=== PATIENT | female | born 1935 | race Caucasian/White ===

== ENCOUNTER 2017-10-10 18:56 | Emergency (ER) | payer MEDICARE, OTHER ==
[~2017-10-10] VITALS: Ht 175.3 cm; Wt 94.0 kg
[2017-10-10 19:05] VITALS: BP 177/89; PULSE 76; RESP 18; TEMP 98.8; O2SAT 97
--- NOTE | 2017-10-10 19:58 | PD ---
HPI Chief Complaint: Back/ Neck Pain or Injury Time Seen by Provider: 19:33 Travel History International Travel<30 days: No Contact w/Intl Traveler<30days: No Traveled to known affect area: No History of Present Illness HPI Patient 81-year-old female presents emergency department for evaluation of low back pain, flank pain, right-sided neck pain for the past day or 2. Patient about a week ago went to her primary care physician was diagnosed with urinary tract infection after presenting with flank pain. She was started on Keflex. Urine culture returned which show that the patient was resistant to Keflex and she was changed to Cipro by a PA. She was seen again today by the PA, still had urinary tract symptoms but had new complaints of neck pain and was thought that this might be an adverse reaction to Cipro so she was sent here for further evaluation. Patient states her neck pain is typically worse in the morning and then loosens up a little bit but is accompanied with some spasm. She has not had any enuresis, no saddle anesthesia no weakness in her arms or legs. No history of trauma. No fevers no cough no congestion PFSH Past Medical History Hx Anticoagulant Therapy: Yes (ASA 81MG) Cardiovascular Problems: Yes (HX PVC'S) Diverticulitis: Yes Endocrine: Yes (hypoglycemia) Tetanus Vaccination: Unknown Influenza Vaccination: Yes ?: Not Past Surgical History Hysterectomy: Yes Tonsillectomy: Yes Social History Alcohol Use: No Tobacco Use: No Substance Use: No Allergies-Medications (Allergen,Severity, Reaction): Coded Allergies: tetanus immune globulin (Verified Allergy, Severe, Anaphylaxis, 10/10/17) Uncoded Allergies: MSG (Allergy, Severe, Headache, 10/10/17) Reported Meds & Prescriptions Reported Meds & Active Scripts Active Ultram (Tramadol HCl) 50 Mg Tab 50 Mg PO Q6H PRN Review of Systems Except as stated in HPI: all other systems reviewed are Neg Physical Exam Narrative GENERAL: Well-developed well-nourished appears younger than stated age nontoxic appearance appears quite well and very pleasant. SKIN: Focused skin assessment warm/dry. HEAD: Atraumatic. Normocephalic. EYES: Pupils equal and round. No scleral icterus. No injection or drainage. ENT: No nasal bleeding or discharge. Mucous membranes pink and moist. NECK: Trachea midline. No JVD. CARDIOVASCULAR: Regular rate and rhythm. No murmur appreciated. RESPIRATORY: No accessory muscle use. Clear to auscultation. Breath sounds equal bilaterally. GASTROINTESTINAL: Abdomen soft, non-tender, nondistended. Hepatic and splenic margins not palpable. No CVA tenderness no rebound no percussive tenderness. Psoas and obturator signs are negative, [place] sign negative. No tenderness in the right upper quadrant. MUSCULOSKELETAL: No obvious deformities. No clubbing. No cyanosis. No edema. There is no midline CT or L-spine tenderness, there is no muscular tenderness. NEUROLOGICAL: Awake and alert. No obvious cranial nerve deficits. Motor grossly within normal limits. Normal speech. PSYCHIATRIC: Appropriate mood and affect; insight and judgment normal. Data Data Last Documented VS Vital Signs Date Time Temp Pulse Resp B/P (MAP) Pulse Ox O2 Delivery O2 Flow Rate FiO2 10/10/17 20:07 98 10/10/17 19:05 98.8 76 18 177/89 (118) Orders Orders Urinalysis - C+S If Indicated (10/10/17 19:16) Urine Culture (10/10/17 19:37) Complete Blood Count With Diff (10/10/17 19:57) Comprehensive Metabolic Panel (10/10/17 19:57) Lipase (10/10/17 19:57) Iv Access Insert/Monitor (10/10/17 19:57) Ecg Monitoring (10/10/17 19:57) Oximetry (10/10/17 19:57) Sodium Chloride 0.9% Flush (Ns Flush) (10/10/17 20:00) Ct Abd/Pel W/O Iv Contrast (10/10/17 ) Ct Lumb Spine W/O Contrast (10/10/17 ) Ct Cerv Spine W/O Contrast (10/10/17 ) Ed Discharge Order (10/10/17 22:18) Labs Laboratory Tests Test 10/10/17 20:07 10/10/17 20:38 White Blood Count 8.4 TH/MM3 Red Blood Count 4.57 MIL/MM3 Hemoglobin 13.1 GM/DL Hematocrit 40.0 % Mean Corpuscular Volume 87.5 FL Mean Corpuscular Hemoglobin 28.7 PG Mean Corpuscular Hemoglobin Concent 32.8 % Red Cell Distribution Width 12.8 % Platelet Count 181 TH/MM3 Mean Platelet Volume 8.2 FL Neutrophils (%) (Auto) 56.0 % Lymphocytes (%) (Auto) 31.8 % Monocytes (%) (Auto) 8.6 % Eosinophils (%) (Auto) 2.6 % Basophils (%) (Auto) 1.0 % Neutrophils # (Auto) 4.7 TH/MM3 Lymphocytes # (Auto) 2.7 TH/MM3 Monocytes # (Auto) 0.7 TH/MM3 Eosinophils # (Auto) 0.2 TH/MM3 Basophils # (Auto) 0.1 TH/MM3 CBC Comment DIFF FINAL Differential Comment Blood Urea Nitrogen 12 MG/DL Creatinine 0.77 MG/DL Random Glucose 113 MG/DL Total Protein 7.5 GM/DL Albumin 4.0 GM/DL Calcium Level 9.3 MG/DL Alkaline Phosphatase 71 U/L Aspartate Amino Transf (AST/SGOT) 29 U/L Alanine Aminotransferase (ALT/SGPT) 32 U/L Total Bilirubin 0.4 MG/DL Sodium Level 138 MEQ/L Potassium Level 3.9 MEQ/L Chloride Level 103 MEQ/L Carbon Dioxide Level 29.5 MEQ/L Anion Gap 6 MEQ/L Estimat Glomerular Filtration Rate 72 ML/MIN Lipase 120 U/L Urine Color YELLOW Urine Turbidity CLEAR Urine pH 6.0 Urine Specific [place] 1.020 Urine Protein NEG mg/dL Urine Glucose (UA) NEG mg/dL Urine Ketones NEG mg/dL Urine Occult Blood TRACE Urine Nitrite NEG Urine Bilirubin NEG Urine Urobilinogen 0.2 MG/DL Urine Leukocyte Esterase NEG Urine RBC 0-3 /hpf Urine WBC 3-5 /hpf Urine Squamous Epithelial Cells 6-8 /hpf Microscopic Urinalysis Comment CULT NOT INDICATED MDM Medical Decision Making Medical Screen Exam Complete: Yes Emergency Medical Condition: Yes Differential Diagnosis Kidney stone, UTI, musculoskeletal pain, medication reaction possible but seems unlikely peer Narrative Course Patient room to the emergency department, she appears well and nontoxic, discussed that Cipro has been associated with some tendon injuries but typically those have been Achilles tendons, her neck is stable, she has no radiculopathy by moving her neck, she does have some degenerative disc disease on CT of the C-spine and T-spine but has no radiculopathy symptoms and no extremity symptoms. No cauda equina symptoms either. UA is negative now however urine culture sent anyways. Basic labs are reassuring. No kidney stones: Last 24 [address] Impressions [address] 10/10/17 0000 Signed Impressions: Service Date/Time: October 21:21 - CONCLUSION: 1. No acute fracture. Advanced degenerative change at L4-5 results in severe central canal stenosis as above. Mild canal stenosis at L3-4 secondary to broad-based disc protrusion. Also mild disc protrusion at L5-S1 at L2-3. Steven Schultz MD Cervical Spine CT 10/10/17 0000 Signed Impressions: Service Date/Time: October 21:17 - CONCLUSION: 1. No acute fracture. Degenerative disc disease with moderate stenosis at C3-4 and moderate to severe stenosis at C5-6. Steven Schultz MD Abdomen/Pelvis CT 10/10/17 0000 Signed Impressions: Service Date/Time: October 21:21 - CONCLUSION: 1. No acute findings within the abdomen or pelvis. Multiple gallstones. Fat containing umbilical hernia measuring about 3 cm. No renal or bladder calculi. Steven Schultz MD Discussed with patient my recommendations to continue the Cipro but if she is still concerned I be happy to switch her to another regimen considering doxycycline. However I do not have access to her urine culture at this time and I am reluctant to switch his this regimen is working for her urine. After we have discussed and using shared decision making philosophies the patient elects to stay on ciprofloxacin for the time being. She will follow up with her primary care physician discuss return to ED criteria and will follow her urine culture here per our protocol. Diagnosis Primary Impression: DDD (degenerative disc disease), lumbar Additional Impression: DDD (degenerative disc disease), cervical Med/Other Pt SpecificInfo: Prescription(s) given Scripts Tramadol (Ultram) 50 Mg Tab 50 MG PO Q6H Y for PAIN, #12 TAB 0 Refills Prov: Jarret Ham MD 10/10/17 Disposition: 01 DISCHARGE HOME Condition: Stable Jarret Ham MD October 10, 2017 19:58
[2017-10-10] MEDS ORDERED: SODIUM CHLORIDE 0.9% FLUSH 10 ML FLUSH IV FLUSH PRN (20:00)
[2017-10-10 20:07] VITALS: O2SAT 98
[2017-10-10 20:20] LABS: CHLORIDE 103 MEQ/L (98-107); SODIUM (NA) 138 MEQ/L (136-145)
[2017-10-10 20:22] LABS: AUTOMATED NEUTROPHIL # 4.7 TH/MM3 (1.8-7.7); BASOPHIL # 0.1 TH/MM3 (0-0.2); EOSINOPHIL # 0.2 TH/MM3 (0-0.4); EOSINOPHIL % 2.6 % (0.0-4.0); HEMOGLOBIN 13.1 GM/DL (11.6-15.3); LYMPH % 31.8 % (9.0-44.0); LYMPHOCYTE # 2.7 TH/MM3 (1.0-4.8); MEAN CELL VOLUME 87.5 FL (80.0-100.0); MEAN CORPUSCULAR HEMOGLOBIN 28.7 PG (27.0-34.0); MEAN CORPUSCULAR HGB CONC 32.8 % (32.0-36.0); MEAN PLATELET VOLUME 8.2 FL (7.0-11.0); MONO % 8.6 % (0.0-8.0); MONOCYTE # 0.7 TH/MM3 (0-0.9); PLATELET COUNT 181 TH/MM3 (150-450); RED BLOOD COUNT 4.57 MIL/MM3 (4.00-5.30); RED CELL DISTRIBUTION WIDTH 12.8 % (11.6-17.2); WHITE BLOOD COUNT 8.4 TH/MM3 (4.0-11.0)
[2017-10-10 20:24] LABS: BICARBONATE 29.5 MEQ/L (21.0-32.0); CALCIUM 9.3 MG/DL (8.5-10.1); GLUCOSE,RANDOM 113 MG/DL (74-106)
[2017-10-10 20:25] LABS: BLOOD UREA NITROGEN 12 MG/DL (7-18)
[2017-10-10 20:27] LABS: ALT (GPT) 32 U/L (10-53); AST (GOT) 29 U/L (15-37); CREATININE 0.77 MG/DL (0.50-1.00); GLOMERULAR FILTRATION RATE 72 ML/MIN (>89)
[2017-10-10 20:29] LABS: TOTAL BILIRUBIN ADULT 0.4 MG/DL (0.2-1.0); TOTAL PROTEIN 7.5 GM/DL (6.4-8.2)
[2017-10-10 20:30] LABS: ALKALINE PHOSPHATASE 71 U/L (45-117)
[2017-10-10 20:49] LABS: BILIRUBIN, URINE NEG (NEG); BLOOD, URINE TRACE (NEG); GLUCOSE,URINE NEG (NEG); KETONE, URINE NEG (NEG); NITRITE,URINE NEG (NEG); URINE COLOR YELLOW (YELLW/STRAW); URINE LEUKOCYTE ESTERASE NEG (NEG)
[2017-10-10 21:00] LABS: RBC, URINE 0-3 /hpf (0-3)
--- NOTE | 2017-10-10 21:57 | RADRPT ---
EXAM DATE/TIME: 10/10/2017 21:21 [facility] COMPARISON: No previous studies available for comparison. INDICATIONS : Unresolved UTI. Not helped with medication. Abdominal pain. ORAL CONTRAST: No oral contrast ingested. RADIATION DOSE: 17.57 CTDIvol (mGy) MEDICAL HISTORY : Diverticulitis. PVC's SURGICAL HISTORY : Tonsillectomy. Hysterectomy. ENCOUNTER: Initial ACUITY: 1 week PAIN SCALE: 8/10 LOCATION: abdomen TECHNIQUE: Volumetric scanning of the abdomen and pelvis was performed. Using automated exposure control and ad justment of the mA and/or kV according to patient size, radiation dose was kept as low as reasonably achievable to obtain optimal diagnostic quality images. DICOM format image data is available electro nically for review and comparison. FINDINGS: Lung bases demonstrate minimal scarring and atelectasis. No effusion No acute findings in the liver, spleen, adrenals, kidneys or pancreas. Calcified gallstones in the ga llbladder. Small fat containing umbilical hernia. No pelvic masses or free fluid. No bladder calculi. No acute bony abnormalities. CONCLUSION: 1. No acute findings within the abdomen or pelvis. Multiple gallstones. Fat containing umbilical nolan ia measuring about 3 cm. No renal or bladder calculi. Steven Schultz MD on October 10, 2017 at 21:50 Board Certified Radiologist. This report was verified electronically.
--- NOTE | 2017-10-10 22:11 | RADRPT ---
EXAM DATE/TIME: 10/10/2017 21:17 [facility] COMPARISON: No previous studies available for comparison. INDICATIONS : Unresolved UTI. Possible reaction to medication, neck and head pain. RADIATION DOSE: 26.58 CTDIvol (mGy) MEDICAL HISTORY : Diverticulitis. PVC's SURGICAL HISTORY : Tonsillectomy. Hysterectomy. ENCOUNTER: Initial ACUITY: 1 week PAIN SCALE: 8/10 LOCATION: neck TECHNIQUE: Volumetric scanning of the cervical spine was performed. Multiplanar reconstructions in the sagittal, coronal and oblique axial planes were performed. Using automated exposure control and adjustment o f the mA and/or kV according to patient size, radiation dose was kept as low as reasonably achievable to obtain optimal diagnostic quality images. DICOM format image data is available electronically f or review and comparison. FINDINGS: No acute fracture or spondylolisthesis. Advanced degenerative disc disease at C3-4 and C5-6 with mode rate AP stenosis at C3-4 and moderate to severe AP canal stenosis at C5-6 with associated bilateral f oraminal stenosis. No prevertebral soft tissue swelling. CONCLUSION: 1. No acute fracture. Degenerative disc disease with moderate stenosis at C3-4 and moderate to severe stenosis at C5-6. Steven Schultz MD on October 10, 2017 at 22:04 Board Certified Radiologist. This report was verified electronically.
--- NOTE | 2017-10-10 22:14 | RADRPT ---
EXAM DATE/TIME: 10/10/2017 21:21 [facility] COMPARISON: No previous studies available for comparison. INDICATIONS : Unresolved UTI. Back pain. RADIATION DOSE: 0 CTDIvol (mGy) ; Reconstructed from previous dataset, no dose MEDICAL HISTORY : Diverticulitis. PVC's SURGICAL HISTORY : Tonsillectomy. Hysterectomy. ENCOUNTER: Initial ACUITY: 1 week PAIN SCALE: 8/10 LOCATION: flank TECHNIQUE: Volumetric scanning of the lumbar spine was performed. Multiplanar reconstructions in the sagittal, coronal and oblique axial planes were performed. Using automated exposure control and adjustment of the mA and/or kV according to patient size, radiation dose was kept as low as reasonably achievable t o obtain optimal diagnostic quality images. DICOM format image data is available electronically for review and comparison. FINDINGS: No acute fracture identified. There is moderate degenerative disc disease. Broad-based disc osteophyt e complex at L4-5 results in focal severe central canal lateral recess stenosis and moderate severe b ilateral foraminal stenosis. At L3-4 there is a mild stenosis with broad-based disc protrusion. Also mild protrusion at L2-3 and L5-S1. CONCLUSION: 1. No acute fracture. Advanced degenerative change at L4-5 results in severe central canal stenosis a s above. Mild canal stenosis at L3-4 secondary to broad-based disc protrusion. Also mild disc protrus ion at L5-S1 at L2-3. Steven Schultz MD on October 10, 2017 at 22:09 Board Certified Radiologist. This report was verified electronically.
[2017-10-10] MEDS ORDERED: TRAM50 PO (22:26)
== END 2017-10-10 22:32 | disposition home or self-care (01) ==
LOC: PHED 18:56
DX: M51.36 Other intervertebral disc degeneration, lumbar region (principal); M50.31 Other cervical disc degeneration, high cervical region; M50.322 Other cervical disc degeneration at C5-C6 level; K80.80 Other cholelithiasis without obstruction; K42.9 Umbilical hernia without obstruction or gangrene; I49.3 Ventricular premature depolarization; Z87.19 Personal history of other diseases of the digestive system; Z16.19 Resistance to other specified beta lactam antibiotics
CPT/HCPCS: 72125; 72131; 74176; 80053; 81001; 83690; 85025; 87086; 99284